=== PATIENT | male | born 2000 | race Caucasian/White ===

== ENCOUNTER 2022-01-20 22:33 | Inpatient (IN) | payer OTHER ==
[~2022-01-20] VITALS: Ht 170.2 cm; Wt 71.7 kg
[~2022-01-20 22:33] MED LIST: CLIN300 PO
[2022-01-21 03:49] LABS: BASOPHILS ABSOLUTE AUTO 0.04 K/mm3 (0.00-0.23); BASOPHILS PERCENT AUTO 0 % (0-2); EOSINOPHILS ABSOLUTE AUTO 0.31 K/mm3 (0.00-0.68); EOSINOPHILS PERCENT AUTO 2 % (0-6); Hematocrit 39.6 % (37.0-53.0); IMMATURE GRAN ABSOLUTE AUTO 0.05 K/mm3 (0.00-0.10); IMMATURE GRAN PERCENT AUTO 0 % (0-1); LYMPHOCYTES ABSOLUTE AUTO 1.19 K/mm3 (0.84-5.20); LYMPHOCYTES PERCENT AUTO 8 % (21-46); MONOCYTES ABSOLUTE AUTO 1.84 K/mm3 (0.16-1.47); MONOCYTES PERCENT AUTO 12 % (4-13); Mean Corpuscular HGB 27.6 pg (26.0-34.0); Mean Corpuscular HGB Conc 32.8 g/dL (31.5-36.5); Mean Corpuscular Volume 84 fL (80-100); Mean Platelet Volume 8.5 fL (9.1-12.4); NEUTROPHILS ABSOLUTE AUTO 11.59 K/mm3 (1.96-9.15); NEUTROPHILS PERCENT AUTO 77 % (41-73); Platelet Count 367 K/mm3 (150-400); RDW Coefficient Variation 13.6 % (11.7-14.2); RDW Standard Deviation 42.1 fL (35.1-46.3); Red Blood Cell Count 4.71 M/mm3 (4.30-5.90); White Blood Cell Count 15.02 K/mm3 (4.00-11.30)
[2022-01-21 04:11] LABS: Albumin/Globulin Ratio 0.8 (0.8-1.8); Bilirubin, Total 0.3 mg/dL (0.1-1.0); Bun/Creatinine Ratio 22.2 (12.0-20.0); Calcium, Blood 8.7 mg/dL (8.5-10.1); Creatinine, Blood 0.63 mg/dL (0.60-1.20); Potassium, Blood 3.6 mmol/L (3.5-5.5)
--- NOTE | 2022-01-21 11:27 | NUR ---
REPORT RECIEVED FROM [facility]. PT TO UNIT AT 1015. PT IS A/O, VSS. AMBULATED TO BED AND AGREED TO HAVE A SHOWER. PT REPORTS N/T TO R HAND, SWELLING. RADAL PULSE IS +2, PT REPORTS THAT WIGGLING FINGERS IS TOO PAINFUL. PT ORIENTED TO ROOM AND CALL LIGHT, WILL CTM.
--- NOTE | 2022-01-21 15:59 | NUR ---
SUMMARY: NO ACUTE CHANGE SINCE ADMISSION. REDNESS AND SWELLING OUTLINED AT R HAND, PT NOW ABLE TO WIGGLE FINGERS MORE. IV ANTIBIOTIC GIVEN. PT REPORTS PAIN WELL MANAGED WITH TYLENOL. INDEPENDENT IN ROOM. REPORT PASSED TO BUSHRA HALE
--- NOTE | 2022-01-22 04:19 | NUR ---
SHIFT SUMMARY NO ACUTE CHANGES THIS SHIFT. R HAND REMAINS SWOLLEN AND RED T/O R WRIST AND FINGERS. PAIN MANAGED PER EMAR. PATIENT UP INDEPENDENTLY IN ROOM T/O SHIFT. EATING, DRINKING, & VOIDING WELL. NO REPORTS OF BM'S. CALL LIGHT IN REACH, WILL REPORT TO ONCOMING RN.
[2022-01-22 04:59] LABS: BASOPHILS ABSOLUTE AUTO 0.06 K/mm3 (0.00-0.23); BASOPHILS PERCENT AUTO 0 % (0-2); EOSINOPHILS ABSOLUTE AUTO 0.37 K/mm3 (0.00-0.68); EOSINOPHILS PERCENT AUTO 3 % (0-6); Hematocrit 42.6 % (37.0-53.0); Hemoglobin 13.6 g/dL (13.5-17.5); IMMATURE GRAN ABSOLUTE AUTO 0.07 K/mm3 (0.00-0.10); IMMATURE GRAN PERCENT AUTO 1 % (0-1); LYMPHOCYTES PERCENT AUTO 9 % (21-46); MONOCYTES ABSOLUTE AUTO 1.75 K/mm3 (0.16-1.47); MONOCYTES PERCENT AUTO 12 % (4-13); Mean Corpuscular HGB 27.3 pg (26.0-34.0); Mean Corpuscular HGB Conc 31.9 g/dL (31.5-36.5); Mean Corpuscular Volume 86 fL (80-100); Mean Platelet Volume 8.7 fL (9.1-12.4); NEUTROPHILS PERCENT AUTO 75 % (41-73); Platelet Count 384 K/mm3 (150-400); RDW Coefficient Variation 13.8 % (11.7-14.2); Red Blood Cell Count 4.98 M/mm3 (4.30-5.90); White Blood Cell Count 14.15 K/mm3 (4.00-11.30)
[2022-01-22 05:28] LABS: Bun/Creatinine Ratio 48.2 (12.0-20.0); Calcium, Blood 8.7 mg/dL (8.5-10.1); Creatinine, Blood 0.25 mg/dL (0.60-1.20); Potassium, Blood 4.1 mmol/L (3.5-5.5)
[2022-01-22 14:50] LABS: SARS-Cov-2 (COVID-19) PCR, MMC NEGATIVE (NEGATIVE)
--- NOTE | 2022-01-22 15:11 | NUR ---
01/22/22 1511 Davy Irizarry PT ON SCHEDULED ABX
--- NOTE | 2022-01-22 16:33 | NUR ---
PT BACK FROM DAY SURGERY AT THIS TIME. C/O MINIMAL PAIN AND TOLERATING PO INTAKE WELL.
--- NOTE | 2022-01-22 17:03 | NUR ---
SHIFT SUMMARY PT S/P I&D TO R HAND. PT TOLERATING PO INTAKE WELL AND C/O MINIMAL PAIN AT THIS TIME. PT CONTINUING TO RECEIVE IV ABX. IND IN ROOM. RESTING COMFORTABLY IN BED WITH HIS CALL LIGHT IN REACH. ABLE TO MAKE HIS NEEDS KNOWN. VSS.
--- NOTE | 2022-01-22 17:23 | NUR ---
PT LEFT ROOM AND RUNNING IN THE HALLS AGITATED. PT TOOK IV POLE AND LEFT HOSPITAL. PT IN PARKING LOT NEAR PATIENT ENTRANCE. SECURITY NOTIFIED AT THIS TIME.
--- NOTE | 2022-01-22 17:37 | NUR ---
PT BACK IN ROOM AND AGREEABLE TO STAYING AND RECEIVING TREATMENT AT THIS TIME.
--- NOTE | 2022-01-22 19:10 | NUR ---
ASSUMED CARE PF PATIENT. PATIENT CURRENTLY OUT OF ROOM. PREVIOUS RN REPORTED THAT PATIENT AMBULATED OUTSIDE AND HAS BEEN GONE APPROX 20 MINUTES AT THIS TIME.
--- NOTE | 2022-01-22 19:40 | NUR ---
PATIENT RETURNED TO ROOM. STATED HE, "WENT AND GOT GROCERIES".
--- NOTE | 2022-01-22 19:45 | NUR ---
CALL FROM SECURITY TO LICENSED WEIGHER. SECURITY REPORTED THAT PATIENT WAS OUTSIDE WITH ANOTHER PATIENT USING A VAPE PEN. THIS RN SPOKE WITH PATIENT AND REMINDED THAT HE IS NOT ALLOWED TO USE VAPE PEN WHILE ADMITTED TO THE HOSPITAL. PATIENT DECLINED USING AND/OR HAVING A VAPE PEN ON HIM.
--- NOTE | 2022-01-23 01:46 | NUR ---
APPROX 1230 PATIENT PULLED IV OUT AND LEFT ROOM, STAFF WAS UNABLE TO FIND PATIENT. NURSING SUPEVISOR & DR MARKS NOTIFIED. LASHAUN RETURNED TO ROOM AT 1249. THIS RN & NURSING SHELL MACHINE OPERATOR MANASA AMBROCIO SPOKE WITH PATIENT REGAARDING LEAVING HIS ROOM & THE BUILDING. PATIENT STATED "I WENT TO THE DOORS" WHEN ASKED WHAT FOR PATIENT STATED "TO DRY MY HAIR". NURSING SHELL MACHINE OPERATOR DISCUSSED THAT PATIENT WAS PREVIOUSLY TOLD HE WAS NOT TO GO OUTSIDE ANYMORE AND IF HE LEFT UNKNOWINGLY AGAIN HE WOULD BE DISCHARGED AMA & EXPLAINED WHAT THAT MEANT, WELL THE RISK AND BENEFITS. THIS RN REINFORCED THAT THE PATIENT WOULD RISK A WORSENING INFECTION, SEPSIS, LOSS OF HAND/ARM, AND POTENTIALLY . ALSO DISCUSSED THAT PATIENT IS ADMITTED FOR IV ABX AT THIS TIME AND WOULD BENEFIT FROM CONTINUING THE IV ABX. PATIENT VERBALIZED UNDERSTANDING AND AGREED TO STAYING. AMA FORMED WAS FILLED OUT BY THIS RN & CONSERVATION OR HERITAGE ARCHITECT ZACH AND LEFT ON PATIENTS CHART AT THIS TIME. AT 0130 PATIENT WAS IN ROOM AT THE TIME THIS RN CHECKED ON PATIENT. AT 0145 THIS RN WAS PASSING PATIENT ROOM AND NOTICED THE DOOR WAS LEFT OPEN, THE PATIENT WAS NOT PRESENT AND PATIENTS BELONGINGS WERE NOW GONE. THE PATIENT WAS NOT PRESENT ANYWHERE IN UNIT AT THIS TIME. THIS RN NOTIFIED DR MARKS AND WAS MADE AWARE. NURSING SHELL MACHINE OPERATOR UPDATED WELL. ALSO CALLED SECURITY TO UPDATE THAT PATIENT WAS DISCHARGED AMA AND IS NOT TO RETURN TO HIS ROOM ANY LONGER.
== END 2022-01-23 01:45 | disposition left against medical advice (07) | DRG 872 ==
LOC: ER 22:33 → ERHOLD 01-21 05:54 → SURS 01-21 05:54
PROVIDERS: Family Medicine; Orthopaedic Surgery; Student in an Organized Health Care Education/Training Program; ADMIT Internal Medicine
PROC: 3E03329 Introduction of Other Anti-infective into Peripheral Vein, Percutaneous Approach (ICD-10-PCS; 2022-01-21)
PROC: 0J9J0ZZ Drainage of Right Hand Subcutaneous Tissue and Fascia, Open Approach (ICD-10-PCS; principal; 2022-01-22 14:00)
DX: A41.9 Sepsis, unspecified organism (principal); L02.511 Cutaneous abscess of right hand; L03.113 Cellulitis of right upper limb; F31.9 Bipolar disorder, unspecified; Z20.822 Contact with and (suspected) exposure to COVID-19; F17.210 Nicotine dependence, cigarettes, uncomplicated; Z59.00 Homelessness unspecified; Z88.1 Allergy status to other antibiotic agents; Z79.899 Other long term (current) drug therapy
CPT/HCPCS: 36415; 73120; 73200; 73201; 80048; 80053; 83605; 85025; 87070; 87075; 87147; 87205; 96365; 96366; 96375; 99284-25; A9270; J0690; J1100; J1885; J2250; J2405; J2704; J3010; J3370; J7050; J7120; Q9967; U0004